=== PATIENT | male | born 1950 | race Caucasian/White ===

== ENCOUNTER 2017-10-03 14:41 | Emergency (ER) | payer MEDICARE, OTHER ==
[2017-10-03] MEDS: SOD CHLORIDE 0.9% 500 ML IV (18:04)
[2017-10-03 18:07] LABS: ADD MAN DIFF? NO
[2017-10-03 18:09] LABS: BASOPHILS % 0.4 % (0.0-2.0); EOSINOPHILS % 0.6 % (0.0-7.0); HEMATOCRIT 48.5 % (42.0-52.0); HEMOGLOBIN 16.1 g/dl (14.0-18.0); LYMPHOCYTES # 0.9 10^3/ul (0.8-2.9); LYMPHOCYTES % 16.2 % (15.0-51.0); MEAN CORPUSCULAR HEMOGLOBIN 32.2 pg (29.0-33.0); MEAN CORPUSCULAR HGB CONC 33.2 g/dl (32.0-37.0); MEAN PLATELET VOLUME 9.2 fl (7.4-10.4); MONOCYTE # 0.6 10^3/ul (0.3-0.9); MONOCYTES % 11.7 % (0.0-11.0); NEUTROPHIL # 3.8 10^3/ul (1.6-7.5); NEUTROPHILS % 70.9 % (39.0-77.0); PLATELET COUNT 127 10^3/UL (140-415); RED CELL DISTRIBUTION WIDTH 13.3 % (11.5-14.5)
[2017-10-03 18:09] LABS: WHITE BLOOD COUNT 5.3 10^3/ul (4.8-10.8)
[2017-10-03 18:31] LABS: AADO2 Arterial 59.6 mmHg (7.0-24.0); Allen Test ACCEPTAB; Arterial Base Excess 1.2 mmol/L (-3.0-3); Arterial Blood Gas Oxygen Sat 95.5 mmHG (95.0-98.0); Arterial COHb 0.4 % (0.0-3.0); Arterial Fraction of Oxyhgb 94.9 % (93.0-99.0); Arterial HCO3 26.9 mmol/L (22.0-26.0); Arterial MetHb 0.2 % (0.0-1.5); Arterial Total Hemglobin 16.6 g/dl (12.0-18.0); Arterial pCO2 45.9 mmhg (35-45); MODE NASAL CANNULA; Site Right Radial
[2017-10-03 18:34] LABS: ANION GAP 21 (8-16); BLOOD UREA NITROGEN 20 mg/dl (7-20); CALCIUM 9.7 mg/dl (8.4-10.2); CARBON DIOXIDE 28 mmol/L (21-31); CHLORIDE 95 mmol/L (97-110); CREATININE 1.26 mg/dl (0.61-1.24); GLUCOSE 137 mg/dl (70-220); POTASSIUM 4.8 mmol/L (3.5-5.1); SODIUM 139 mmol/L (135-144)
[2017-10-03 18:48] LABS: TROPONIN-I < 0.012 ng/ml (0.00-0.12)
[2017-10-03] MEDS: IPRATROPIUM (NEB) 0.5 MG/2.5 ML AMP NEB (18:51)
[2017-10-03] MEDS: ALBUTEROL 0.083% (NEB) 2.5 MG/3 ML AMP NEB (18:51)
[2017-10-03] MEDS: ONDANSETRON 4 MG INJ IV (19:03)
[2017-10-03] MEDS: LEVOFLOXACIN 750MG/D5W (PMX) 150 ML IVPB (19:18)
[2017-10-03] MEDS: DEXAMETHASONE 10 MG/ML 1 ML INJ IV (19:18)
== END 2017-10-03 21:52 | disposition home or self-care (01) ==
LOC: E/R 14:41
DX: J20.9 Acute bronchitis, unspecified (principal); R07.89 Other chest pain; J45.909 Unspecified asthma, uncomplicated; Z79.82 Long term (current) use of aspirin
CPT/HCPCS: 36415; 36600; 71010; 80048; 82803; 84484; 85025; 87400; 93005; 94664; 96374; 96375; 99285-25

== ENCOUNTER 2018-05-05 05:52 | Emergency (ER) | payer MEDICARE, OTHER ==
[2018-05-05] MEDS: ONDANSETRON (ODT) 4 MG TAB ODT (06:55)
== END 2018-05-05 08:10 | disposition home or self-care (01) ==
LOC: FTE 05:52
DX: S01.111A Laceration without foreign body of right eyelid and periocular area, initial encounter (principal); S01.411A Laceration without foreign body of right cheek and temporomandibular area, initial encounter; S05.91XA Unspecified injury of right eye and orbit, initial encounter; I10 Essential (primary) hypertension; J45.909 Unspecified asthma, uncomplicated; W06.XXXA Fall from bed, initial encounter; Y92.9 Unspecified place or not applicable; Z79.82 Long term (current) use of aspirin
CPT/HCPCS: 70450; 70486; 99285-25